=== PATIENT | male | born 1935 | race Asian ===

== ENCOUNTER 2020-11-02 20:32 | Inpatient (IN) | payer OTHER ==
[2020-11-02 21:11] VITALS: BMI 22.9
[2020-11-02] MEDS ORDERED: SODIUM CHLORIDE 0.9% 500 ML INFUS.BAG IV ONE (21:12)
[2020-11-02 23:22] LABS: BASO % 0.3 % (0-2.0); HEMATOCRIT 38.1 % (35.4-49); HEMOGLOBIN 12.8 GM/dL (11.7-16.9); LYMPH % 4.1 % (8-40); MCH 37.9 pg (25.7-33.7); MCHC 33.6 g/dl (32.0-35.9); MEAN CELL VOLUME 112.6 fl (80-96); MEAN PLT VOLUME 8.1 fl (7.5-11.1); MONO % 7.5 % (3.8-10.2); NEUT % 88.1 % (42.8-82.8); PLATELET COUNT 287 K/MM3 (134-434); RBC 3.38 M/mm3 (4.00-5.60); RDW 17.6 % (11.9-15.9); WHITE BLOOD COUNT 14.3 K/mm3 (4.0-10.0)
[2020-11-02 23:24] LABS: EPI CELLS 12 /uL (0-25.1); HYALINE CASTS 1 /uL (0-3.1); URINE APPEARANCE CLEAR; URINE BACTERIA 6445 /uL (0-1359); URINE BILIRUBIN NEGATIVE (NEGATIVE); URINE COLOR DK YELLOW; URINE GLUCOSE (UA) NEGATIVE (NEGATIVE); URINE KETONE NEGATIVE (NEGATIVE); URINE LEUK ESTERASE TRACE (NEGATIVE); URINE NITRITE NEGATIVE (NEGATIVE); URINE PROTEIN NEGATIVE (NEGATIVE); URINE RBC 33 /uL (0-23.9); URINE UROBILINOGEN 0.2 mg/dL (0.2-1.0); URINE WBC 15 /uL (0-25.8)
[2020-11-02 23:25] LABS: VENOUS BASE EXCESS -4.7 mmol/L (-2-2); VENOUS O2 SATURATION 70.5 % (70-80); VENOUS PCO2 38.1 mmHg (38-52); VENOUS PH 7.346 (7.310-7.410)
[2020-11-02] MEDS ORDERED: CEFTRIAXONE 1 GM in DEXTROSE 5%-WATER - 100 ML IVPB ONE (23:28)
[2020-11-02 23:41] LABS: CHLORIDE 102 mmol/L (98-107); SODIUM 136 mmol/L (136-145)
[2020-11-02 23:43] LABS: ANION GAP 11 MMOL/L (8-16); BLOOD UREA NITROGEN 39.4 mg/dL (7-18); CALCIUM 8.5 mg/dL (8.5-10.1); CO2 23 mmol/L (21-32); GLUCOSE,RANDOM 205 mg/dL (74-106)
[2020-11-02 23:44] LABS: ALBUMIN 3.3 g/dl (3.4-5.0)
[2020-11-02 23:46] LABS: CREATININE 1.7 mg/dL (0.55-1.3); SGPT/ALT 21 U/L (13-61)
[2020-11-02 23:47] LABS: SGOT/AST 55 U/L (15-37)
[2020-11-02 23:48] LABS: BILIRUBIN,TOTAL 0.7 mg/dL (0.2-1)
[2020-11-02 23:49] LABS: ALK PHOS 40 U/L (45-117)
[2020-11-02 23:52] LABS: ANISOCYTOSIS 2+; MACROCYTOSIS 3+; PLATELET ESTIMATE NORMAL
[2020-11-03] MEDS ORDERED: CEFTRIAXONE 1 GM/50 ML BAG ONE (00:03)
[2020-11-03 01:03] LABS: BLOOD UREA NITROGEN 41.5 mg/dL (7-18); CALCIUM 8.7 mg/dL (8.5-10.1); CREATININE 1.6 mg/dL (0.55-1.3)
[2020-11-03] MEDS ORDERED: ACETAMINOPHEN 325 MG TABLET (FP) PO PRN (01:56)
[2020-11-03] MEDS: SODIUM CHLORIDE 1,000 ML IV SCH (02:46)
[2020-11-03] MEDS ORDERED: LEVOTHYROXINE NA 25 MCG TABLET (FP) ONE (06:17)
[2020-11-03] MEDS ORDERED: HEPARIN NA (PORCINE) 5,000 UNITS/ML 1ML VIAL ONE (06:18)
[2020-11-03] MEDS: LEVOTHYROXINE NA 75 MCG TABLET (FP) PO SCH (06:27)
[2020-11-03] MEDS: HEPARIN NA (PORCINE) 5,000 UNITS/ML 1ML VIAL SQ SCH ×3 (06:27→21:23)
[2020-11-03] MEDS: INSULIN SLIDING SCALE (NOVOLOG) 1 VIAL SQ SCH ×4 (08:05→21:22)
[2020-11-03] MEDS ORDERED: TAMSULOSIN HCL 0.4 MG CAP ONE (08:08)
[2020-11-03] MEDS ORDERED: ASPIRIN 81 MG CHEWABLE TABLETS ONE (08:08)
[2020-11-03] MEDS ORDERED: AZITHROMYCIN IVPB 500 MG/250 ML BAG IVPB ONE (08:09)
[2020-11-03] MEDS: TAMSULOSIN HCL 0.4 MG CAP PO SCH (08:26)
[2020-11-03] MEDS: ASPIRIN 81 MG CHEWABLE TABLETS PO SCH (09:17)
[2020-11-03 09:57] LABS: BASO % 0.9 % (0-2.0); EOS % 0.6 % (0-4.5); HEMATOCRIT 38.5 % (35.4-49); HEMOGLOBIN 13.3 GM/dL (11.7-16.9); MCH 38.4 pg (25.7-33.7); MCHC 34.6 g/dl (32.0-35.9); MEAN CELL VOLUME 111.2 fl (80-96); MEAN PLT VOLUME 7.8 fl (7.5-11.1); MONO % 7.2 % (3.8-10.2); NEUT % 82.3 % (42.8-82.8); PLATELET COUNT 290 K/MM3 (134-434); RBC 3.47 M/mm3 (4.00-5.60); RDW 17.9 % (11.9-15.9); WHITE BLOOD COUNT 9.5 K/mm3 (4.0-10.0)
[2020-11-03] MEDS ORDERED: AZITHROMYCIN IVPB 500 MG in DEXTROSE 5%-WATER - 250 ML IVPB SCH (10:00)
[2020-11-03] MEDS ORDERED: DOXYCYCLINE INJECTION 100 MG in DEXTROSE 5%-WATER - 100 ML IVPB SCH (10:00)
[2020-11-03 10:29] LABS: ALBUMIN 3.6 g/dl (3.4-5.0)
[2020-11-03 10:30] LABS: BILIRUBIN,TOTAL 0.6 mg/dL (0.2-1); TOT PROT 7.1 g/dl (6.4-8.2)
[2020-11-03 10:31] LABS: CALCIUM 8.5 mg/dL (8.5-10.1)
[2020-11-03 10:32] LABS: BLOOD UREA NITROGEN 34.9 mg/dL (7-18); CREATININE 1.3 mg/dL (0.55-1.3); MAGNESIUM 2.1 mg/dL (1.8-2.4); PHOSPHOROUS 2.7 mg/dL (2.5-4.9)
[2020-11-03] MEDS ORDERED: PT OWN MED DRAWER 7, Y5N ONE ×2 (10:35→20:24)
[2020-11-03] MEDS: DOXYCYCLINE INJECTION 100 MG in DEXTROSE 5%-WATER - 100 ML IVPB SCH ×2 (10:43→21:21)
[2020-11-03] MEDS ORDERED: LIDOCAINE HCL 1%, 10 MG/ML (20ML VIAL) ONE (16:45)
[2020-11-03] MEDS ORDERED: CEFTRIAXONE 1,000 MG in DEXTROSE 5%-WATER - 50 ML IVPB SCH (21:00)
[2020-11-03] MEDS ORDERED: CEFTRIAXONE 1 GM in DEXTROSE 5%-WATER - 50 ML IVPB SCH (21:59)
[2020-11-03] MEDS ORDERED: ROSUVASTATIN CA 10 MG TABLET (FP) PO SCH (22:00)
[2020-11-03] MEDS ORDERED: cefTRIAXone SODIUM 1 GM VIAL ONE (22:19)
[2020-11-03] MEDS ORDERED: DEXTROSE 5%-WATER - 50 ML IVPB ONE (22:20)
[2020-11-04] MEDS: INSULIN SLIDING SCALE (NOVOLOG) 1 VIAL SQ SCH ×4 (06:11→21:37)
[2020-11-04] MEDS: SODIUM CHLORIDE 1,000 ML IV SCH (06:14)
[2020-11-04] MEDS: HEPARIN NA (PORCINE) 5,000 UNITS/ML 1ML VIAL SQ SCH ×3 (06:14→21:37)
[2020-11-04] MEDS: LEVOTHYROXINE NA 75 MCG TABLET (FP) PO SCH (06:17)
[2020-11-04 07:05] LABS: BASO % 0.9 % (0-2.0); EOS % 1.5 % (0-4.5); HEMATOCRIT 34.9 % (35.4-49); LYMPH % 15.4 % (8-40); MCHC 34.4 g/dl (32.0-35.9); MEAN CELL VOLUME 110.4 fl (80-96); MEAN PLT VOLUME 7.9 fl (7.5-11.1); MONO % 14.6 % (3.8-10.2); NEUT % 67.6 % (42.8-82.8); PLATELET COUNT 264 K/MM3 (134-434); RBC 3.16 M/mm3 (4.00-5.60); RDW 17.5 % (11.9-15.9); WHITE BLOOD COUNT 9.1 K/mm3 (4.0-10.0)
[2020-11-04 07:22] LABS: BLOOD UREA NITROGEN 22.7 mg/dL (7-18)
[2020-11-04 07:25] LABS: MAGNESIUM 1.8 mg/dL (1.8-2.4)
[2020-11-04 07:27] LABS: CREATININE 0.9 mg/dL (0.55-1.3)
[2020-11-04] MEDS: TAMSULOSIN HCL 0.4 MG CAP PO SCH (09:32)
[2020-11-04] MEDS: ASPIRIN 81 MG CHEWABLE TABLETS PO SCH (09:32)
[2020-11-04] MEDS ORDERED: HYDROXYUREA 500 MG CAPSULE PO SCH (10:00)
[2020-11-04] MEDS: AMPICILLIN NA/SULBACTAM NA 3 GM in SODIUM CHLORIDE 100 ML IVPB SCH ×2 (10:14→17:05)
[2020-11-04] MEDS ORDERED: PT OWN MED DRAWER 7, Y5N ONE ×2 (14:14→17:51)
[2020-11-04] MEDS ORDERED: NAPH,MB-DB/K PH,MBDB POWDER PACKET PO ONE (14:42)
[2020-11-04] MEDS ORDERED: SODIUM CHLORIDE 1,000 ML IV SCH (18:26)
[2020-11-04] MEDS ORDERED: ACETAMINOPHEN 325 MG TABLET (FP) PO PRN (18:26)
[2020-11-04] MEDS ORDERED: INSULIN (NOVOLOG) ASPART 100 UNITS/ML 10ML VIAL ONE (21:12)
[2020-11-04] MEDS: ROSUVASTATIN CA 10 MG TABLET (FP) PO SCH (21:36)
[2020-11-05] MEDS: AMPICILLIN NA/SULBACTAM NA 3 GM in SODIUM CHLORIDE 100 ML IVPB SCH ×3 (02:25→17:37)
[2020-11-05] MEDS: INSULIN SLIDING SCALE (NOVOLOG) 1 VIAL SQ SCH ×4 (06:59→22:05)
[2020-11-05] MEDS: LEVOTHYROXINE NA 75 MCG TABLET (FP) PO SCH (06:59)
[2020-11-05] MEDS: HEPARIN NA (PORCINE) 5,000 UNITS/ML 1ML VIAL SQ SCH ×3 (07:00→21:55)
[2020-11-05] MEDS: TAMSULOSIN HCL 0.4 MG CAP PO SCH (08:20)
[2020-11-05 09:16] LABS: BASO % 0.6 % (0-2.0); HEMATOCRIT 33.7 % (35.4-49); HEMOGLOBIN 11.7 GM/dL (11.7-16.9); LYMPH % 14.5 % (8-40); MCH 38.3 pg (25.7-33.7); MCHC 34.8 g/dl (32.0-35.9); MEAN CELL VOLUME 110.2 fl (80-96); MEAN PLT VOLUME 7.7 fl (7.5-11.1); MONO % 11.6 % (3.8-10.2); NEUT % 71.3 % (42.8-82.8); PLATELET COUNT 271 K/MM3 (134-434); RBC 3.06 M/mm3 (4.00-5.60); RDW 17.7 % (11.9-15.9); WHITE BLOOD COUNT 6.4 K/mm3 (4.0-10.0)
[2020-11-05 10:14] LABS: MAGNESIUM 1.7 mg/dL (1.8-2.4)
[2020-11-05] MEDS ORDERED: PT OWN MED DRAWER 7, Y5N ONE ×2 (10:21→16:39)
[2020-11-05] MEDS: HYDROXYUREA 500 MG CAPSULE PO SCH (10:22)
[2020-11-05] MEDS: ASPIRIN 81 MG CHEWABLE TABLETS PO SCH (10:22)
[2020-11-05 10:28] LABS: ANISOCYTOSIS 2+; MACROCYTOSIS 2+; PLATELET ESTIMATE NORMAL
[2020-11-05] MEDS ORDERED: MAGNESIUM SULF 50% (8.12 MEQ/2 ML-1 GM VIAL) IVPB ONE (10:34)
[2020-11-05 10:45] LABS: BLOOD UREA NITROGEN 13.2 mg/dL (7-18); CREATININE 0.8 mg/dL (0.55-1.3); PHOSPHOROUS 2.3 mg/dL (2.5-4.9)
[2020-11-05] MEDS ORDERED: NAPH,MB-DB/K PH,MBDB POWDER PACKET PO ONE (14:34)
[2020-11-05] MEDS: PANTOPRAZOLE 40 MG TABLET PO SCH (16:07)
[2020-11-05] MEDS: GABAPENTIN 100 MG CAPSULE PO SCH (21:55)
[2020-11-05] MEDS: DOCUSATE SODIUM 100 MG CAPSULE (FP) PO SCH (21:55)
[2020-11-05] MEDS: ROSUVASTATIN CA 10 MG TABLET (FP) PO SCH (21:55)
[2020-11-06] MEDS ORDERED: PT OWN MED DRAWER 7, Y5N ONE ×3 (01:26→16:18)
[2020-11-06] MEDS: AMPICILLIN NA/SULBACTAM NA 3 GM in SODIUM CHLORIDE 100 ML IVPB SCH ×3 (01:37→17:31)
[2020-11-06] MEDS: DOCUSATE SODIUM 100 MG CAPSULE (FP) PO SCH ×3 (06:10→21:37)
[2020-11-06] MEDS: LEVOTHYROXINE NA 75 MCG TABLET (FP) PO SCH (06:10)
[2020-11-06] MEDS: HEPARIN NA (PORCINE) 5,000 UNITS/ML 1ML VIAL SQ SCH ×3 (06:10→21:37)
[2020-11-06] MEDS: INSULIN SLIDING SCALE (NOVOLOG) 1 VIAL SQ SCH ×4 (06:15→21:50)
[2020-11-06 08:31] LABS: BASO % 0.6 % (0-2.0); EOS % 2.8 % (0-4.5); HEMATOCRIT 35.1 % (35.4-49); HEMOGLOBIN 12.2 GM/dL (11.7-16.9); LYMPH % 15.2 % (8-40); MCH 38.5 pg (25.7-33.7); MCHC 34.9 g/dl (32.0-35.9); MEAN CELL VOLUME 110.4 fl (80-96); MEAN PLT VOLUME 7.8 fl (7.5-11.1); MONO % 10.8 % (3.8-10.2); NEUT % 70.6 % (42.8-82.8); PLATELET COUNT 310 K/MM3 (134-434); RBC 3.18 M/mm3 (4.00-5.60); RDW 17.5 % (11.9-15.9); WHITE BLOOD COUNT 6.6 K/mm3 (4.0-10.0)
[2020-11-06] MEDS: TAMSULOSIN HCL 0.4 MG CAP PO SCH (08:34)
[2020-11-06 08:46] LABS: CALCIUM 8.1 mg/dL (8.5-10.1)
[2020-11-06 08:47] LABS: BLOOD UREA NITROGEN 9.1 mg/dL (7-18); MAGNESIUM 1.9 mg/dL (1.8-2.4)
[2020-11-06 08:50] LABS: CREATININE 0.7 mg/dL (0.55-1.3); PHOSPHOROUS 2.6 mg/dL (2.5-4.9)
[2020-11-06] MEDS: HYDROXYUREA 500 MG CAPSULE PO SCH (09:40)
[2020-11-06] MEDS: ASPIRIN 81 MG CHEWABLE TABLETS PO SCH (09:40)
[2020-11-06] MEDS: FERROUS SO4 325 MG TABLET (FP) PO SCH (09:40)
[2020-11-06] MEDS: PANTOPRAZOLE 40 MG TABLET PO SCH (09:40)
[2020-11-06] MEDS: GABAPENTIN 100 MG CAPSULE PO SCH ×2 (09:40→21:37)
[2020-11-06] MEDS ORDERED: INSULIN (NOVOLOG) ASPART 100 UNITS/ML 10ML VIAL ONE ×4 (11:29→21:49)
[2020-11-06 11:38] LABS: ANISOCYTOSIS 0; HELMET CELLS 0; HOWELL-JOLLY BODIES 0; MACROCYTOSIS 0; OVALOCYTE 0; PLATELET ESTIMATE NORMAL; ROULEAU 0; SICKELED CELLS 0; TARGET CELLS 0; TEAR DROP CELLS 0; TOXIC GRANULATION 0
[2020-11-06] MEDS: ROSUVASTATIN CA 10 MG TABLET (FP) PO SCH (21:37)
[2020-11-07] MEDS ORDERED: PT OWN MED DRAWER 7, Y5N ONE ×2 (01:10→17:06)
[2020-11-07] MEDS: AMPICILLIN NA/SULBACTAM NA 3 GM in SODIUM CHLORIDE 100 ML IVPB SCH ×3 (01:13→17:34)
[2020-11-07] MEDS: HEPARIN NA (PORCINE) 5,000 UNITS/ML 1ML VIAL SQ SCH ×2 (06:13→14:05)
[2020-11-07] MEDS: LEVOTHYROXINE NA 75 MCG TABLET (FP) PO SCH (06:13)
[2020-11-07] MEDS: DOCUSATE SODIUM 100 MG CAPSULE (FP) PO SCH ×2 (06:13→16:47)
[2020-11-07] MEDS: INSULIN SLIDING SCALE (NOVOLOG) 1 VIAL SQ SCH ×3 (06:27→16:54)
[2020-11-07] MEDS: GABAPENTIN 100 MG CAPSULE PO SCH (09:28)
[2020-11-07] MEDS: FERROUS SO4 325 MG TABLET (FP) PO SCH (09:28)
[2020-11-07] MEDS: ASPIRIN 81 MG CHEWABLE TABLETS PO SCH (09:28)
[2020-11-07] MEDS: PANTOPRAZOLE 40 MG TABLET PO SCH (09:28)
[2020-11-07] MEDS: TAMSULOSIN HCL 0.4 MG CAP PO SCH (09:28)
[2020-11-07] MEDS: HYDROXYUREA 500 MG CAPSULE PO SCH (09:29)
[2020-11-07 09:47] LABS: HEMATOCRIT 35.4 % (35.4-49); HEMOGLOBIN 12.4 GM/dL (11.7-16.9); MCH 38.1 pg (25.7-33.7); MEAN CELL VOLUME 108.8 fl (80-96); MEAN PLT VOLUME 7.4 fl (7.5-11.1); PLATELET COUNT 359 K/MM3 (134-434); RBC 3.25 M/mm3 (4.00-5.60); RDW 17.3 % (11.9-15.9); WHITE BLOOD COUNT 7.7 K/mm3 (4.0-10.0)
[2020-11-07 10:04] LABS: BLOOD UREA NITROGEN 8.9 mg/dL (7-18); CALCIUM 8.5 mg/dL (8.5-10.1)
[2020-11-07 10:05] LABS: MAGNESIUM 1.9 mg/dL (1.8-2.4)
[2020-11-07 10:08] LABS: CREATININE 0.8 mg/dL (0.55-1.3); PHOSPHOROUS 2.2 mg/dL (2.5-4.9)
[2020-11-07] MEDS ORDERED: INSULIN (NOVOLOG) ASPART 100 UNITS/ML 10ML VIAL ONE ×2 (11:35→16:53)
[2020-11-07] MEDS ORDERED: NAPH,MB-DB/K PH,MBDB POWDER PACKET PO ONE ×2 (12:00→15:02)
[2020-11-07 14:14] VITALS: BP 142/82; PULSE 102; TEMP 97.7
== END 2020-11-07 19:58 | DRG 871 ==
LOC: JER 20:32 → JERBED 23:39 → J4W 11-03 09:55 → J6S 11-04 18:06
PROVIDERS: ADMIT Hospitalist; ATTEND Internal Medicine
PROC: 0T9B70Z Drainage of Bladder with Drainage Device, Via Natural or Artificial Opening (ICD-10-PCS; principal; 2020-11-03)
DX: A41.9 Sepsis, unspecified organism (principal); G93.41 Metabolic encephalopathy; N17.9 Acute kidney failure, unspecified; N39.0 Urinary tract infection, site not specified; I24.8 Other forms of acute ischemic heart disease; I50.32 Chronic diastolic (congestive) heart failure; I11.0 Hypertensive heart disease with heart failure; E78.5 Hyperlipidemia, unspecified; E03.9 Hypothyroidism, unspecified; K21.9 Gastro-esophageal reflux disease without esophagitis; D51.9 Vitamin B12 deficiency anemia, unspecified; E11.9 Type 2 diabetes mellitus without complications; E83.39 Other disorders of phosphorus metabolism; E83.42 Hypomagnesemia; Z79.4 Long term (current) use of insulin; R94.31 Abnormal electrocardiogram [ECG] [EKG]; E86.0 Dehydration; R33.9 Retention of urine, unspecified; N40.1 Benign prostatic hyperplasia with lower urinary tract symptoms; N36.5 Urethral false passage; D75.89 Other specified diseases of blood and blood-forming organs
CPT/HCPCS: 36415; 70450-TC; 70551-TC; 71045-TC-FY; 76775-TC; 80048; 80053; 81003; 82010; 82550; 82553; 82570; 82607; 82746; 82803; 82962; 83036; 83735; 84100; 84300; 84436; 84443; 84484; 85025; 85027; 87040; 87086; 87186; 87899; 93005; 93010; 93306-TC; 97116-GP; 97162-GP; 99285-25; C9803; J1644; J8999; U0003; U0005

== ENCOUNTER 2020-11-19 22:58 | Observation (INO) | payer OTHER ==
[2020-11-20 00:47] LABS: BASO % 1.1 % (0-2.0); EOS % 2.2 % (0-4.5); HEMATOCRIT 40.4 % (35.4-49); HEMOGLOBIN 13.7 GM/dL (11.7-16.9); LYMPH % 17.9 % (8-40); MCH 37.6 pg (25.7-33.7); MEAN CELL VOLUME 110.7 fl (80-96); MEAN PLT VOLUME 7.7 fl (7.5-11.1); MONO % 10.8 % (3.8-10.2); PLATELET COUNT 463 K/MM3 (134-434); RBC 3.65 M/mm3 (4.00-5.60); RDW 17.4 % (11.9-15.9); WHITE BLOOD COUNT 9.3 K/mm3 (4.0-10.0)
[2020-11-20 00:51] LABS: INR 1.07 (0.83-1.09); PROTHROMBIN TIME (PATIENT) 12.9 SEC (9.7-13.0)
[2020-11-20 00:54] LABS: ACTIVATED PTT 33.8 SECONDS (25.2-36.5)
[2020-11-20 01:02] LABS: CALCIUM 8.7 mg/dL (8.5-10.1)
[2020-11-20 01:03] LABS: ALBUMIN 3.5 g/dl (3.4-5.0)
[2020-11-20 01:06] LABS: CREATININE 1.4 mg/dL (0.55-1.3)
[2020-11-20 01:08] LABS: BILIRUBIN,TOTAL 0.4 mg/dL (0.2-1); TOT PROT 7.8 g/dl (6.4-8.2)
[2020-11-20 01:30] LABS: BLOOD UREA NITROGEN 37.6 mg/dL (7-18)
[2020-11-20 07:02] LABS: ANISOCYTOSIS 2+; MACROCYTOSIS 2+; PLATELET ESTIMATE NORMAL; ROULEAU 1+
[2020-11-20 07:15] LABS: BASO % 2.1 % (0-2.0); EOS % 2.6 % (0-4.5); HEMATOCRIT 36.6 % (35.4-49); HEMOGLOBIN 12.7 GM/dL (11.7-16.9); LYMPH % 20.7 % (8-40); MCH 38.2 pg (25.7-33.7); MCHC 34.6 g/dl (32.0-35.9); MEAN CELL VOLUME 110.3 fl (80-96); MEAN PLT VOLUME 7.3 fl (7.5-11.1); MONO % 11.6 % (3.8-10.2); PLATELET COUNT 438 K/MM3 (134-434); RBC 3.32 M/mm3 (4.00-5.60); RDW 17.1 % (11.9-15.9); WHITE BLOOD COUNT 7.9 K/mm3 (4.0-10.0)
[2020-11-20 07:29] LABS: CALCIUM 8.4 mg/dL (8.5-10.1)
[2020-11-20 07:30] LABS: ALBUMIN 3.2 g/dl (3.4-5.0); BLOOD UREA NITROGEN 36.3 mg/dL (7-18)
[2020-11-20 07:32] LABS: CREATININE 1.2 mg/dL (0.55-1.3)
[2020-11-20 07:33] LABS: PHOSPHOROUS 3.5 mg/dL (2.5-4.9)
[2020-11-20 07:34] LABS: BILIRUBIN,TOTAL 0.6 mg/dL (0.2-1); TOT PROT 7.1 g/dl (6.4-8.2)
[2020-11-20] MEDS ORDERED: LIDOCAINE HCL 1%, 10 MG/ML (20ML VIAL) ONE (07:41)
[2020-11-20] MEDS ORDERED: SODIUM CHLORIDE 0.45% 1,000 ML IV SCH (09:45)
[2020-11-20] MEDS ORDERED: SODIUM CHLORIDE 1,000 ML IV SCH (10:00)
[2020-11-20] MEDS: GABAPENTIN 100 MG CAPSULE PO SCH (21:17)
[2020-11-20] MEDS: DOCUSATE SODIUM 100 MG CAPSULE (FP) PO SCH (21:17)
[2020-11-20] MEDS: ROSUVASTATIN CA 10 MG TABLET (FP) PO SCH (21:17)
[2020-11-20] MEDS: TIMOLOL 0.5% OPHTHALMIC SOL 5 ML BOTTLE OD SCH (21:20)
[2020-11-20] MEDS ORDERED: INSULIN (NOVOLOG) ASPART 100 UNITS/ML 10ML VIAL ONE (21:24)
[2020-11-20] MEDS: INSULIN SLIDING SCALE (NOVOLOG) 1 VIAL SQ SCH (21:24)
[2020-11-20] MEDS ORDERED: LUBIPROSTONE 8 MCG PO SCH (22:00)
[2020-11-21 00:36] VITALS: BMI 19.3
[2020-11-21] MEDS: LEVOTHYROXINE NA 75 MCG TABLET (FP) PO SCH (06:01)
[2020-11-21] MEDS: INSULIN SLIDING SCALE (NOVOLOG) 1 VIAL SQ SCH ×4 (06:01→21:36)
[2020-11-21 08:43] LABS: BASO % 1.1 % (0-2.0); EOS % 2.3 % (0-4.5); HEMATOCRIT 41.8 % (35.4-49); HEMOGLOBIN 14.5 GM/dL (11.7-16.9); LYMPH % 16.1 % (8-40); MCH 38.4 pg (25.7-33.7); MCHC 34.8 g/dl (32.0-35.9); MEAN CELL VOLUME 110.5 fl (80-96); MEAN PLT VOLUME 7.9 fl (7.5-11.1); MONO % 10.2 % (3.8-10.2); NEUT % 70.3 % (42.8-82.8); PLATELET COUNT 499 K/MM3 (134-434); RBC 3.78 M/mm3 (4.00-5.60); RDW 17.4 % (11.9-15.9); WHITE BLOOD COUNT 8.5 K/mm3 (4.0-10.0)
[2020-11-21 09:11] LABS: ALBUMIN 3.6 g/dl (3.4-5.0); BLOOD UREA NITROGEN 26.9 mg/dL (7-18); CALCIUM 9.2 mg/dL (8.5-10.1); MAGNESIUM 2.2 mg/dL (1.8-2.4)
[2020-11-21 09:14] LABS: CREATININE 1.1 mg/dL (0.55-1.3); PHOSPHOROUS 3.1 mg/dL (2.5-4.9)
[2020-11-21 09:16] LABS: BILIRUBIN,TOTAL 0.8 mg/dL (0.2-1); TOT PROT 8.1 g/dl (6.4-8.2)
[2020-11-21] MEDS: PANTOPRAZOLE 20 MG TABLET PO SCH (10:01)
[2020-11-21] MEDS: ASPIRIN 81 MG CHEWABLE TABLETS PO SCH (10:01)
[2020-11-21] MEDS: GABAPENTIN 100 MG CAPSULE PO SCH ×2 (10:01→21:38)
[2020-11-21] MEDS: HYDROXYUREA 500 MG CAPSULE PO SCH (10:01)
[2020-11-21] MEDS: FERROUS SO4 325 MG TABLET (FP) PO SCH (10:01)
[2020-11-21] MEDS: DOCUSATE SODIUM 100 MG CAPSULE (FP) PO SCH ×3 (10:01→21:39)
[2020-11-21] MEDS: CYANOCOBALAMIN 1,000 MCG TABLET (FP) PO SCH (10:01)
[2020-11-21] MEDS: ASCORBIC ACID 500 MG TABLET (FP) PO SCH (10:01)
[2020-11-21] MEDS: CHOLECALCIFEROL (VIT D3) 1,000 UNIT (25 MCG) TABLET PO SCH (10:02)
[2020-11-21] MEDS: TIMOLOL 0.5% OPHTHALMIC SOL 5 ML BOTTLE OD SCH ×2 (10:40→21:38)
[2020-11-21] MEDS: amLODIPine BESYLATE 5 MG TABLET (FP) PO SCH (10:40)
[2020-11-21 10:53] LABS: ANISOCYTOSIS 0; HELMET CELLS 0; HOWELL-JOLLY BODIES 0; MACROCYTOSIS 0; OVALOCYTE 0; PLATELET ESTIMATE INCREASED; ROULEAU 0; SICKELED CELLS 0; TARGET CELLS 0; TEAR DROP CELLS 0; TOXIC GRANULATION 0
[2020-11-21] MEDS: SOLIFENACIN SUCCINATE 5 MG TAB PO SCH (13:32)
[2020-11-21] MEDS ORDERED: PT OWN MED DRAWER 7, Y5N ONE (16:45)
[2020-11-21] MEDS: FINASTERIDE 5 MG TABLET (FP) PO SCH (17:04)
[2020-11-21] MEDS: TAMSULOSIN HCL 0.4 MG CAP PO SCH (21:38)
[2020-11-21] MEDS: ROSUVASTATIN CA 10 MG TABLET (FP) PO SCH (21:38)
[2020-11-21] MEDS ORDERED: TAMSULOSIN HCL 0.4 MG CAP PO SCH (22:00)
[2020-11-22] MEDS: DOCUSATE SODIUM 100 MG CAPSULE (FP) PO SCH ×4 (07:10→21:42)
[2020-11-22] MEDS: amLODIPine BESYLATE 5 MG TABLET (FP) PO SCH ×2 (07:10→09:47)
[2020-11-22] MEDS: INSULIN SLIDING SCALE (NOVOLOG) 1 VIAL SQ SCH ×5 (07:10→21:42)
[2020-11-22] MEDS: TIMOLOL 0.5% OPHTHALMIC SOL 5 ML BOTTLE OD SCH ×3 (07:10→21:43)
[2020-11-22 08:20] LABS: EOS % 2.5 % (0-4.5); HEMATOCRIT 36.2 % (35.4-49); HEMOGLOBIN 12.8 GM/dL (11.7-16.9); LYMPH % 14.6 % (8-40); MCH 38.7 pg (25.7-33.7); MCHC 35.2 g/dl (32.0-35.9); MEAN CELL VOLUME 109.8 fl (80-96); MEAN PLT VOLUME 7.3 fl (7.5-11.1); MONO % 11.5 % (3.8-10.2); NEUT % 70.4 % (42.8-82.8); PLATELET COUNT 435 K/MM3 (134-434); RBC 3.29 M/mm3 (4.00-5.60); RDW 16.9 % (11.9-15.9); WHITE BLOOD COUNT 10.3 K/mm3 (4.0-10.0)
[2020-11-22 08:50] LABS: ALBUMIN 3.3 g/dl (3.4-5.0); BLOOD UREA NITROGEN 22.8 mg/dL (7-18)
[2020-11-22 08:51] LABS: BILIRUBIN,TOTAL 0.6 mg/dL (0.2-1); TOT PROT 7.2 g/dl (6.4-8.2)
[2020-11-22 08:53] LABS: PHOSPHOROUS 2.6 mg/dL (2.5-4.9)
[2020-11-22 08:55] LABS: CALCIUM 8.3 mg/dL (8.5-10.1); MAGNESIUM 1.9 mg/dL (1.8-2.4)
[2020-11-22] MEDS ORDERED: PT OWN MED DRAWER 7, Y5N ONE (09:22)
[2020-11-22] MEDS: LEVOTHYROXINE NA 75 MCG TABLET (FP) PO SCH ×2 (09:33→09:39)
[2020-11-22] MEDS: ASPIRIN 81 MG CHEWABLE TABLETS PO SCH (09:35)
[2020-11-22] MEDS ORDERED: INSULIN (NOVOLOG) ASPART 100 UNITS/ML 10ML VIAL ONE (09:37)
[2020-11-22] MEDS: FINASTERIDE 5 MG TABLET (FP) PO SCH (09:40)
[2020-11-22] MEDS: CYANOCOBALAMIN 1,000 MCG TABLET (FP) PO SCH (09:40)
[2020-11-22] MEDS: ASCORBIC ACID 500 MG TABLET (FP) PO SCH (09:41)
[2020-11-22] MEDS: GABAPENTIN 100 MG CAPSULE PO SCH ×2 (09:41→21:42)
[2020-11-22] MEDS: SOLIFENACIN SUCCINATE 5 MG TAB PO SCH (09:41)
[2020-11-22] MEDS: FERROUS SO4 325 MG TABLET (FP) PO SCH (09:41)
[2020-11-22] MEDS: CHOLECALCIFEROL (VIT D3) 1,000 UNIT (25 MCG) TABLET PO SCH (09:41)
[2020-11-22] MEDS: PANTOPRAZOLE 20 MG TABLET PO SCH (09:43)
[2020-11-22] MEDS: HYDROXYUREA 500 MG CAPSULE PO SCH (09:45)
[2020-11-22] MEDS ORDERED: SODIUM CHLORIDE 1,000 ML IV SCH (12:45)
[2020-11-22] MEDS: PATIENT'S OWN MEDICATION (NON-FORMULARY) (C,E,Zinc,Copper 11/Omega3s/Lut [Ocuvite Adult 50 PO SCH ×2 (13:12→13:13)
[2020-11-22] MEDS: TAMSULOSIN HCL 0.4 MG CAP PO SCH (21:42)
[2020-11-22] MEDS: ROSUVASTATIN CA 10 MG TABLET (FP) PO SCH (21:42)
[2020-11-23] MEDS ORDERED: PT OWN MED DRAWER 7, Y5N ONE ×2 (06:17→09:26)
[2020-11-23] MEDS: LEVOTHYROXINE NA 75 MCG TABLET (FP) PO SCH (06:29)
[2020-11-23] MEDS: DOCUSATE SODIUM 100 MG CAPSULE (FP) PO SCH ×3 (06:29→21:06)
[2020-11-23] MEDS: INSULIN SLIDING SCALE (NOVOLOG) 1 VIAL SQ SCH ×4 (06:29→21:06)
[2020-11-23 08:13] LABS: BASO % 1.2 % (0-2.0); EOS % 2.3 % (0-4.5); HEMATOCRIT 33.9 % (35.4-49); HEMOGLOBIN 11.8 GM/dL (11.7-16.9); LYMPH % 16.4 % (8-40); MCH 38.1 pg (25.7-33.7); MCHC 34.9 g/dl (32.0-35.9); MEAN CELL VOLUME 109.2 fl (80-96); MEAN PLT VOLUME 7.4 fl (7.5-11.1); MONO % 12.8 % (3.8-10.2); NEUT % 67.3 % (42.8-82.8); PLATELET COUNT 416 K/MM3 (134-434); RDW 16.7 % (11.9-15.9); WHITE BLOOD COUNT 9.7 K/mm3 (4.0-10.0)
[2020-11-23] MEDS ORDERED: SODIUM CHLORIDE 1,000 ML IV SCH (08:30)
[2020-11-23 08:45] LABS: BLOOD UREA NITROGEN 15.9 mg/dL (7-18); CALCIUM 7.8 mg/dL (8.5-10.1); MAGNESIUM 1.7 mg/dL (1.8-2.4)
[2020-11-23 08:47] LABS: BILIRUBIN,TOTAL 0.6 mg/dL (0.2-1); TOT PROT 6.6 g/dl (6.4-8.2)
[2020-11-23 08:48] LABS: PHOSPHOROUS 2.5 mg/dL (2.5-4.9)
[2020-11-23] MEDS ORDERED: MAGNESIUM 1GM/D5W 100ML - 100 ML IVPB IVPB ONE (09:30)
[2020-11-23 09:32] LABS: EPI CELLS 3 /uL (0-25.1); HYALINE CASTS 1 /uL (0-3.1); URINE APPEARANCE CLOUDY; URINE BACTERIA >9,000 /uL (0-1359); URINE BILIRUBIN NEGATIVE (NEGATIVE); URINE COLOR YELLOW; URINE GLUCOSE (UA) NEGATIVE (NEGATIVE); URINE KETONE TRACE (NEGATIVE); URINE LEUK ESTERASE 3+ (NEGATIVE); URINE NITRITE POSITIVE (NEGATIVE); URINE PROTEIN 2+ (NEGATIVE); URINE UROBILINOGEN 0.2 mg/dL (0.2-1.0); URINE WBC 1106 /uL (0-25.8)
[2020-11-23] MEDS: GABAPENTIN 100 MG CAPSULE PO SCH ×2 (09:35→21:06)
[2020-11-23] MEDS: ASCORBIC ACID 500 MG TABLET (FP) PO SCH (09:35)
[2020-11-23] MEDS: ASPIRIN 81 MG CHEWABLE TABLETS PO SCH (09:35)
[2020-11-23] MEDS: FINASTERIDE 5 MG TABLET (FP) PO SCH (09:36)
[2020-11-23] MEDS: amLODIPine BESYLATE 5 MG TABLET (FP) PO SCH (09:36)
[2020-11-23] MEDS: TIMOLOL 0.5% OPHTHALMIC SOL 5 ML BOTTLE OD SCH ×2 (09:36→21:06)
[2020-11-23] MEDS: HYDROXYUREA 500 MG CAPSULE PO SCH (09:36)
[2020-11-23] MEDS: CYANOCOBALAMIN 1,000 MCG TABLET (FP) PO SCH (09:36)
[2020-11-23] MEDS: CHOLECALCIFEROL (VIT D3) 1,000 UNIT (25 MCG) TABLET PO SCH (09:36)
[2020-11-23] MEDS: SOLIFENACIN SUCCINATE 5 MG TAB PO SCH (09:36)
[2020-11-23] MEDS: FERROUS SO4 325 MG TABLET (FP) PO SCH (09:36)
[2020-11-23] MEDS: PANTOPRAZOLE 20 MG TABLET PO SCH (09:36)
[2020-11-23 10:38] LABS: URINE RBC 147.5 /uL (0-23.9)
[2020-11-23 13:34] LABS: ANISOCYTOSIS 1+; MACROCYTOSIS 1+; PLATELET ESTIMATE NORMAL
[2020-11-23] MEDS: TAMSULOSIN HCL 0.4 MG CAP PO SCH (21:06)
[2020-11-23] MEDS: ROSUVASTATIN CA 10 MG TABLET (FP) PO SCH (21:06)
[2020-11-23 21:08] VITALS: BP 135/61; PULSE 87; TEMP 97.6
== END 2020-11-23 21:13 ==
LOC: JER 22:58 → INTOOBSV 11-20 00:02 → UNDOADMOB 11-20 00:02 → JERBED 11-20 00:02 → J5S 11-20 20:17
PROVIDERS: ADMIT Hospitalist; ATTEND Internal Medicine
PROC: 3E033GC Introduction of Other Therapeutic Substance into Peripheral Vein, Percutaneous Approach (ICD-10-PCS; principal; 2020-11-20)
PROC: 3E0337Z Introduction of Electrolytic and Water Balance Substance into Peripheral Vein, Percutaneous Approach (ICD-10-PCS; 2020-11-20)
PROC: 0T9B70Z Drainage of Bladder with Drainage Device, Via Natural or Artificial Opening (ICD-10-PCS; 2020-11-20)
DX: T83.010A Breakdown (mechanical) of cystostomy catheter, initial encounter (principal); N17.9 Acute kidney failure, unspecified; E03.9 Hypothyroidism, unspecified; E78.5 Hyperlipidemia, unspecified; I11.0 Hypertensive heart disease with heart failure; I50.9 Heart failure, unspecified; K21.9 Gastro-esophageal reflux disease without esophagitis; K58.9 Irritable bowel syndrome, unspecified; E53.8 Deficiency of other specified B group vitamins; K59.00 Constipation, unspecified; H35.30 Unspecified macular degeneration; R32 Unspecified urinary incontinence; N40.0 Benign prostatic hyperplasia without lower urinary tract symptoms; H91.8X9 Other specified hearing loss, unspecified ear; E11.65 Type 2 diabetes mellitus with hyperglycemia; E87.0 Hyperosmolality and hypernatremia; N36.5 Urethral false passage
CPT/HCPCS: 36415; 51702; 76775-TC; 76856-TC; 80053; 81003; 82962; 83735; 84100; 84153; 85025; 85610; 85730; 86850; 86900; 86901; 93005; 93010; 96361; 96365; 96375; 99285-25; C9803; G0378; J8999; U0003; U0005